=== PATIENT | male | born 1955 | race Caucasian/White ===

== ENCOUNTER 2023-05-13 10:15 | Emergency (ER) | payer MEDICARE, BC ==
[~2023-05-13] VITALS: Ht 177.8 cm; Wt 93.2 kg
[~2023-05-13 10:15] MED LIST: CYCL-1 PO; ORPH100T4 PO; OXYC-150 PO
[2023-05-13 10:22] VITALS: BP 161/88; PULSE 95; RESP 18; TEMP 98.8; O2SAT 99
[2023-05-13] MEDS ORDERED: LIDOCAINE 1%/EPI 1:100,000 inj. 10 ML multi-dose vial IJ ONE (12:10)
[2023-05-13] MEDS ORDERED: TETanus/Pertussis (Acell)/Diphther VAC/PF (Tdap-Adult) 0.5ml syringe IMVAC ONE (12:10)
[2023-05-13] MEDS ORDERED: bacitracin 15gm ointment TP ONE (12:10)
[2023-05-13] MEDS ORDERED: CEPH500C2 PO (13:07)
== END 2023-05-13 14:08 | disposition home or self-care (01) ==
LOC: ER 10:15
DX: S61.411A Laceration without foreign body of right hand, initial encounter (principal); X58.XXXA Exposure to other specified factors, initial encounter; Y93.89 Activity, other specified; Y92.89 Other specified places as the place of occurrence of the external cause; Y99.8 Other external cause status
CPT/HCPCS: 12031; 73130; 90471; 90715; 99284; A6223; J3490; A6446; A6449

== ENCOUNTER 2024-08-13 12:43 | Emergency (ER) | payer MEDICARE, BC ==
[~2024-08-13] VITALS: Ht 177.8 cm; Wt 92.7 kg
[2024-08-13 14:57] VITALS: TEMP 98.2
[2024-08-13] MEDS ORDERED: HYDR-3965 PO (16:00)
[2024-08-13] MEDS ORDERED: METH-798 PO (16:00)
[2024-08-13 16:11] VITALS: BP 155/72; PULSE 87; RESP 17; O2SAT 98
== END 2024-08-13 16:13 | disposition home or self-care (01) ==
LOC: ER 12:43
DX: S22.32XA Fracture of one rib, left side, initial encounter for closed fracture (principal); S32.028A Other fracture of second lumbar vertebra, initial encounter for closed fracture; S09.8XXA Other specified injuries of head, initial encounter; Z86.73 Personal history of transient ischemic attack (TIA), and cerebral infarction without residual deficits; Z88.0 Allergy status to penicillin; Z72.89 Other problems related to lifestyle; W17.89XA Other fall from one level to another, initial encounter; Y93.89 Activity, other specified; Y92.89 Other specified places as the place of occurrence of the external cause; Y99.8 Other external cause status
CPT/HCPCS: 70450; 71100; 72100; 99284